=== PATIENT | female | born 2005 | race Two or more races ===

== ENCOUNTER → 2024-07-29 | Outpatient (CLI) | payer BC, SELFPAY ==
[2024-07-29 13:10] LABS: Basophils # (Auto) 0.1 Thou/mm3 (0.0-0.2); Basophils % (Auto) 1 % (0-2.5); Eosinophils # (Auto) 0.2 Thou/mm3 (0.0-0.5); Eosinophils % (Auto) 2 % (0-10); Hematocrit 40.8 % (36.0-46.0); Hemoglobin 13.7 g/dL (12.0-16.0); Immature Granulocytes % (Auto) 0 % (0-0); Immature Granulocytes Auto 0.02 Thou/mm3 (0.00-0.00); Lymphocytes # (Auto) 2.3 Thou/mm3 (1.0-4.8); Lymphocytes % (Auto) 30 % (10-50); Mean Corpuscular HGB Conc 33.6 g/dl (31.0-37.0); Mean Corpuscular Hemoglobin 30.6 pg (25.0-35.0); Mean Corpuscular Volume 91 fL (80-100); Monocytes # (Auto) 0.5 Thou/mm3 (0.0-0.8); Monocytes % (Auto) 7 % (0-12); Neutrophils # (Auto) 4.5 Thou/mm3 (1.8-7.7); Neutrophils % (Auto) 60 % (37-80); Nucleated Red Blood Cell % 0 /100 WBC (0); Platelet Count 266 Thou/mm3 (140-440); RDW Standard Deviation 44.4 fL (36.4-46.3); Red Blood Count 4.47 Miln/mm3 (4.00-5.20); White Blood Count 7.5 Thou/mm3 (4.5-11.0)
[2024-07-29 13:17] LABS: Glucose Estimated Average 103 mg/dL (80-131); Hemoglobin A1C 5.2 % Hgb (4.8-6.0)
[2024-07-29 13:20] LABS: Alanine Aminotransferase 22 U/L (10-49); Albumin, Serum 4.4 gm/dL (3.5-5.0); Albumin/Globulin Ratio 1.8 (1.2-2.2); Alkaline Phosphatase 51 U/L (46-116); Anion Gap 6 (7-16); Aspartate Amino Transferase 17 U/L (0-34); BUN/Creatinine Ratio 16 Ratio (12-20); Blood Urea Nitrogen 13 mg/dL (9-23); Calcium 9.4 mg/dL (8.3-10.6); Calcium (Corrected) 9.4 mg/dL (8.5-10.1); Carbon Dioxide 29.3 mMol/L (20.0-31.0); Cardiac Risk Estimate 2.9 RATIO (3.7-5.6); Chloride 105 mMol/L (98-107); Cholesterol 137 mg/dL (132-200); Creatinine (Component) 0.8 mg/dL (0.6-1.3); Globulin 2.5 gm/dL (2.3-3.5); Glucose 106 mg/dL (74-106); HDL Cholesterol 47 mg/dL (40-60); LDL Cholesterol,Calculated 81 mg/dL (0-130); Osmolality,Calculated 279 (275-295); Potassium 4.5 mMol/L (3.4-5.1); Sodium 140 mMol/L (136-145); Thyroid Stimulating Hormone 1.21 uIU/mL (0.55-4.78); Total Protein 6.9 gm/dL (5.7-8.2); Triglycerides 47 mg/dL (30-150); eGFR > 60 See Note
[2024-07-29 13:39] LABS: Syphilis Nonreactive (Nonreactive)
[2024-07-29 13:59] LABS: Hepatitis A Antibody IgM Non Reactive (Non React); Hepatitis B Core Antibody IgM Non Reactive (Non React); Hepatitis B Surface Antigen Non Reactive (Non React); Hepatitis C Antibody Non Reactive (Non React)
[2024-07-29 16:26] LABS: Chlamydia trachomatis PCR Negative (Not Detect); Neisseria Gonorrhoeae DNA PCR Negative (Not Detect); Trichomonas Negative (Negative)
[2024-08-01 07:00] LABS: HIV Ag/Ab, 4th Gen NON-REACTIVE
== END | disposition home or self-care (01) ==
LOC: COPL 11:20
PROVIDERS: PCP Family Medicine; Referring Provider Student in an Organized Health Care Education/Training Program; Visit Provider Student in an Organized Health Care Education/Training Program
DX: Z11.3 Encounter for screening for infections with a predominantly sexual mode of transmission (principal); R53.83 Other fatigue; Z82.49 Family history of ischemic heart disease and other diseases of the circulatory system; Z83.3 Family history of diabetes mellitus
CPT/HCPCS: 36415; 80053; 80061; 80074; 83036; 84443; 85025; 86780; 87389; 87491; 87591; 87661

== ENCOUNTER → 2024-07-30 | Outpatient (CLI) | payer BC, SELFPAY | END | disposition home or self-care (01) | LOC: SLDO 15:16 | PROVIDERS: PCP Family Medicine; Referring Provider Family Medicine; Visit Provider Family Medicine | DX: N39.0 Urinary tract infection, site not specified (principal) | CPT/HCPCS: 87086 ==

== ENCOUNTER 2024-11-06 02:49 | Emergency (ER) | payer BC, SELFPAY ==
[2024-11-06 02:51] VITALS: BMI 25.0
[2024-11-06 02:59] VITALS: BP 126/80; PULSE 93; RESP 17; TEMP 36.9; O2SAT 99
--- NOTE | 2024-11-06 03:07 | PC.NURSE ---
CALLED POISON CONTROL. SPOKE WITH JOSE NO NEED FOR Tx. NO KNOWN MEDICAL PROBLEMS KNOWN. OK FOR OT TO GO HOME.
--- NOTE | 2024-11-06 03:17 | EDNOTE_ITS ---
<Statement entered by Maggie Moore MD - 11/06/24 05:14> As co-signing physician, I was present and available for consult prn. I concur with the plan and care as documented by the midlevel provider. Nausea/Vomit./Diarrhea-RME/HPI General Chief complaint: General Adult/Misc Complain Stated complaint: TOOK A SUPPOSITORY MED ORALY Time Seen by Provider: 11/06/24 03:12 Arrival date/time: 11/06/24 02:49 19F with no significant PMH presents to ED with some ab discomfort and N/V after she accidentally took one boric acid suppository orally about 4 hours ago. Limitations: no limitations Related Data Allergies Allergy/AdvReac Type Severity Reaction Status Date / Time No Known Allergies Allergy Unknown Uncoded 11/06/24 02:56 Review of Systems Review of Systems Systems Reviewed: All systems reviewed, normal except as documented Constitutional Constitutional: Reports system reviewed and no additional complaints, except as documented, Denies fever(s) and Denies headache(s) ENT Ears, Nose, Mouth, and Throat: Denies disequilibrium and Denies headache(s) Cardiovascular Cardiovascular: Reports system reviewed and no additional complaints, except as documented, Denies chest pain and Denies dyspnea Respiratory Respiratory: Reports system reviewed and no additional complaints, except as documented, Denies cough and Denies dyspnea Gastrointestinal Gastrointestinal: Reports system reviewed and no additional complaints, except as documented, Reports as per HPI, Reports abdominal pain, Reports nausea and Reports vomiting Neurologic Neurologic: Reports system reviewed and no additional complaints, except as documented, Denies confusion, Denies disequilibrium and Denies headache(s) Psychiatric Psychiatric: Denies confusion Past Medical History Social History SMOKING STATUS: Never smoker ED Exam General Limitations: Present no limitations General appearance: Present alert and in no apparent distress Head Head exam: Present atraumatic Eye Eye exam: Present normal appearance, PERRL and EOMI ENT ENT exam: Present normal exam, normal oropharynx and mucous membranes moist Neck Neck exam: Present normal inspection, full ROM and trachea midline Chest Chest inspection: Present normal inspection and symmetric chest wall rise Respiratory Respiratory exam: Present normal lung sounds bilaterally Cardiovascular Cardiovascular exam: Present regular rate, normal rhythm and normal heart sounds Abdominal Exam Abdominal exam: Present soft and normal bowel sounds Extremities Exam Extremities exam: Present normal inspection and full ROM Back Exam Back exam: Present normal inspection and full ROM Neurological Exam Neurological exam: Present alert, oriented X3 and CN II-XII intact Psychiatric Psychiatric exam: Present normal affect and normal mood Skin Skin exam: Present warm, dry, intact and normal color Course Quality Measures none Orders Category Date Time Status Ondansetron Odt [Zofran Odt] Med 11/06/24 03:13 Discontinued 4 mg PO X1 ONE Vital Signs Vital signs: Vital Signs Temperature 98.4 F 11/06/24 02:59 Pulse Rate 93 11/06/24 02:59 Respiratory Rate 17 11/06/24 02:59 Blood Pressure 126/80 11/06/24 02:59 Pulse Oximetry (%) 99 11/06/24 02:59 Oxygen Delivery Method Room Air 11/06/24 02:59 O2 at 99% on RA and WNLs Nausea/Vomiting/Diarrhea MDM Narrative MDM Narrative:: 19F with no significant PMH presents to ED with some ab discomfort and N/V after she accidentally took one boric acid suppository orally about 4 hours ago. Physical exam reveals clear oropharynx and normal WOB. Speech normal. Gait normal. Patient is afebrile, calm, and alert. Poison control was contacted. They stated no tests to do. Patient is safe to go home. Patient data External records reviewed:: [facility] previous records Clinical information provided by:: patient Social determinants that could affect healthcare access:: none Patient has the following chronic illnesses:: none How is presenting disease/condition affected by chronic disease/condition?: no chronic disease Evaluation data The following diagnostics were reviewed and interpreted by me:: other (specify) (none) Lab and/or radiology exams considered but not ordered:: not ordered Interpretation Summary: n/a Medications / Prescriptions Medications / Prescriptions considered but not ordered:: ordered Medication administrations:: Medication Administration History Discontinued Medications Ondansetron HCl (Ondansetron Odt 4 Mg Tabrap) 4 mg PO X1 ONE; Protocol Stop: 11/06/24 03:14 above Consultations Consultation(s) initiated? (list below): No Diagnosis Nausea Differential Diagnosis: traveler's diarrhea, food poisoning, gastroenteritis, clostridium difficile infection, drug-induced nausea and vomiting, dehydration and other (toxic effect of inorganic substance, unintentional) Most likely diagnosis given after review of the tests above:: toxic effect of inorganic substance, unintentional Admission Indicated Admission indicated?: not indicated Admission Request Was there a request for admission?: No Disposition Plan Disposition Plan: Discharge Discharge Attestation Discharge Attestation: The patient and all family members were given an opportunity to ask questions and understood the discharge instructions. Discharge instructions specifically effects, indications for sooner follow up or return to the emergency department, and the expected course of current diagnosis. Patient condition: Stable Discharge Plan Plan Patient Disposition: HOME (Self Care) Discharge Disposition comment: Stable Problem List Clinical Impression: Toxic effect of inorganic substance, unintentional Patient/Caregiver Discharge Instructions Education Materials: ED Accidental Ingestion Nontoxic Adult Additional Instructions: Please follow-up with PCP within 24-48 hours and return immediately if symptoms worsen. Print Language: Mauritian Stand Alone Forms: Patient Portal Info Letter DARLENE/AILYN Supervising Physician MERRY Supervising Physician: Dr. Moore
== END 2024-11-06 03:30 | disposition home or self-care (01) ==
LOC: SERX 06:25
PROVIDERS: Emergency Provider Emergency Medicine; PCP Student in an Organized Health Care Education/Training Program
DX: T57.91XA Toxic effect of unspecified inorganic substance, accidental (unintentional), initial encounter (principal); R11.2 Nausea with vomiting, unspecified
CPT/HCPCS: 99282

== ENCOUNTER 2024-11-19 02:40 | Emergency (ER) | payer BC, SELFPAY ==
[2024-11-19 02:41] VITALS: BMI 25.0
[2024-11-19 03:11] VITALS: BP 120/70; RESP 18; TEMP 37.3; O2SAT 98
[2024-11-19] MEDS: BACITRACIN OINT 1 GM PACKET TOP (03:43)
[2024-11-19] MEDS: LIDOCAINE HCL 1% 20 ML VIAL INFL (03:44)
[2024-11-19] MEDS: DIPHTH,PERTUSS(ACELL),TET VAC 0.5 ML SYR- ADULT IMi (03:45)
--- NOTE | 2024-11-19 03:55 | PD.EDWOUND ---
ED Wound/Laceration-RME/HPI General Chief Complaint: Wound/Laceration Stated Complaint: LAC TO RIGHT WRIST Time Seen by Provider: 11/19/24 03:52 Arrival date/time: 11/19/24 02:40 RME / HPI RME / HPI narrative: This section includes all my notes and documentations, including HPI, PE, and ED course. Erasmo Chapman MD HPI: 19yo female here with a laceration to her right wrist. Patient was pushing through a glass window after she got locked out of the house and cut herself on the glass. No other injuries. Unknown last tetanus. No other complaints reported. ROS: All negative except as documented in HPI. Physical Exam: General: Alert and oriented. No acute distress when remaining still. Eyes: Conjunctivae and lids clear. ENT: No nasal congestion. Neck: Supple. Lungs: No respiratory distress. Skin: Warm and dry. In the distal right forearm (palm surface), there is a horizontal 2.5 cm full?skin thickness laceration. No NVT injury. Neuro: Alert and oriented X 3. At this point, diagnoses include Laceration. Treatment here included laceration repair (see procedure note), Lidocaine for local anesthesia, topical bacitracin, Tdap, Keflex. After laceration repair, no NVT injury noted. Provided good wound care instructions. Based on my best medical judgment, made decision no further evaluation or treatment indicated at this time. Patient understands and agrees to the discharge instructions customized and printed, see below. Discharge instructions from Dr. Chapman: -- Your laceration was repaired with 6 stitches. -- Keep the current dressing intact for 24 hours. -- After 24 hours, change the dressing once daily. -- First remove the dressing gently. If it does not come off easily, run water through it until it comes off easily. -- Then gently wash with soap and water. -- After completely drying, apply antibiotic ointment and new dressing. -- Elevate above the heart level today and tomorrow as much as possible. Placing the hand on the head is a good method. -- See your doctor or return here in 7 days for suture removal. Total of 6 stitches. -- Seek immediate medical care with fever, spreading redness from the wound, or with any concerns. Erasmo Chapman MD Related Data Allergies Allergy/AdvReac Type Severity Reaction Status Date / Time No Known Allergies Allergy Unknown Uncoded 11/19/24 02:48 Review of Systems Review of Systems Systems Reviewed: All systems reviewed, normal except as documented Past Medical History Social History SMOKING STATUS: Never smoker ED Exam Narrative Physical exam: As noted in HPI. Course Quality Measures none Orders Category Date Time Status Wound Care [Wound Care] NOW Care 11/19/24 03:22 Completed Bacitracin Oint pkt Med 11/19/24 03:21 Discontinued 1 gm TOP X1 ONE Lidocaine 1% 20 ml [Xylocaine 1% 20 ML] Med 11/19/24 03:21 Discontinued 20 ml INFL X1 ONE TET,DIP/PERT AC (Adult)-Tdap [Boostrix Adult (Tdap) Med 11/19/24 03:21 Discontinued Vacc] 0.5 ml IMI .ONCE ONE cephALEXin [Keflex] Med 11/19/24 03:21 Discontinued 1,000 mg PO X1 ONE Vital Signs Vital signs: Vital Signs Temperature 99.2 F 11/19/24 03:11 Respiratory Rate 18 11/19/24 03:11 Blood Pressure 120/70 11/19/24 03:11 Pulse Oximetry (%) 98 11/19/24 03:11 Oxygen Delivery Method Room Air 11/19/24 03:11 PROCEDURES: Laceration Laceration 1: Site: other (wrist) Side (If applicable): right Size (cm): 3.5 Description: linear Depth: simple, single layer Local Anesthetic: lidocaine 1% Amount of anesthesia used (mL): 6 Pre-repair: irrigated extensively Skin layer closed with: nylon Suture size (cm): 4-0 Number of sutures: 6 Technique: simple, interrupted Wound / Laceration MDM Narrative MDM Narrative:: 19yo female here with a laceration to her right wrist. Patient was pushing through a glass window after she got locked out of the house and cut herself on the glass. No other injuries. Unknown last tetanus. No other complaints reported. Patient data External records reviewed:: [facility] previous records (Per chart review, patient has no relevant previous ED visits.) Clinical information provided by:: patient Social determinants that could affect healthcare access:: none Patient has the following chronic illnesses:: none How is presenting disease/condition affected by chronic disease/condition?: no chronic disease Evaluation data The following diagnostics were reviewed and interpreted by me:: other (specify) (none) Lab and/or radiology exams considered but not ordered:: none Interpretation Summary: none Medications / Prescriptions Medications or Prescriptions considered but not ordered:: none Medication administrations:: Medication Administration History Discontinued Medications Bacitracin (Bacitracin Oint 1 Gm Packet) 1 gm TOP X1 ONE Stop: 11/19/24 03:22 Last Admin: 11/19/24 03:43 Dose: 1 gm Documented By: CVL Cephalexin HCl (Cephalexin 250 Mg Capsule) 1,000 mg PO X1 ONE Stop: 11/19/24 03:22 Last Admin: 11/19/24 03:44 Dose: 1,000 mg Documented By: CVL Diphtheria/Tetanus/Acell Pertussis (Diphth,Pertuss(Acell),Tet Vac 0.5 Ml Syr- Adult) 0.5 ml IMi .ONCE ONE Stop: 11/19/24 03:22 Last Admin: 11/19/24 03:45 Dose: 0.5 ml Documented By: CVL Lidocaine HCl (Lidocaine Hcl 1% 20 Ml Vial) 20 ml INFL X1 ONE Stop: 11/19/24 03:22 Last Admin: 11/19/24 03:44 Dose: 20 ml Documented By: CVL Treatment here included laceration repair (see procedure note), Lidocaine for local anesthesia, topical bacitracin, Tdap, Keflex. Consultations Consultation(s) initiated? (list below): No Diagnosis Wound Differential Diagnosis: laceration, abrasion and avulsion of skin Most likely diagnosis given after review of the tests above:: Laceration Admission Indicated Admission indicated?: not indicated Explain why admission is indicated or not indicated:: With successful laceration repair and no condition needing emergent intervention, there was no indication for admission. Admission Request Was there a request for admission?: No Disposition Plan Disposition Plan: Discharge Discharge Attestation Discharge Attestation: The patient and all family members were given an opportunity to ask questions and understood the discharge instructions. Discharge instructions specifically effects, indications for sooner follow up or return to the emergency department, and the expected course of current diagnosis. Patient condition: Stable Discharge Plan Plan Patient Disposition: HOME (Self Care) Problem List Clinical Impression: Laceration Patient/Caregiver Discharge Instructions Discharge Activity: activity as tolerated Education Materials: ED Laceration, Hand: All Closures Additional Instructions: Discharge instructions from Dr. Chapman:? -- Your laceration was repaired with 6 stitches. -- Keep the current dressing intact for 24 hours. -- After 24 hours, change the dressing once daily. -- First remove the dressing gently.? If it does not come off easily, run water through it until it comes off easily. -- Then gently wash with soap and water. -- After completely drying, apply antibiotic ointment and new dressing. -- Elevate above the heart level today and tomorrow as much as possible.? Placing the hand on the head is a good method. -- See your doctor or return here in 7 days for suture removal.? Total of 6 stitches. -- Seek immediate medical care with fever, spreading redness from the wound, or with any concerns. Print Language: Indonesian Stand Alone Forms: Pilar Award Info., Work/School Release, Patient Portal Info Letter
[2024-11-19 04:33] VITALS: RESP 16
== END 2024-11-19 04:34 | disposition home or self-care (01) ==
LOC: SERX 04:30
PROVIDERS: Emergency Provider Emergency Medicine; PCP Family Medicine
DX: S61.511A Laceration without foreign body of right wrist, initial encounter (principal); W25.XXXA Contact with sharp glass, initial encounter; Y92.008 Other place in unspecified non-institutional (private) residence as the place of occurrence of the external cause; Z23 Encounter for immunization
CPT/HCPCS: 12002; 90471; 90715; 99283; J3490; A9270

== ENCOUNTER 2024-11-27 00:35 | Emergency (ER) | payer BC, SELFPAY ==
[2024-11-27 01:10] VITALS: BP 105/63; PULSE 80; RESP 18; TEMP 37.2; O2SAT 97
--- NOTE | 2024-11-27 01:20 | EDNOTE_ITS ---
ED Wound/Laceration-RME/HPI General Chief Complaint: Wound Recheck / Suture Removal Stated Complaint: SUTURE REMOVAL Time Seen by Provider: 11/27/24 01:07 Arrival date/time: 11/27/24 00:35 19F with no significant PMH presents to ED for suture removal from lac repair done here 7 days ago on R forearm. Limitations: no limitations Related Data Allergies Allergy/AdvReac Type Severity Reaction Status Date / Time No Known Allergies Allergy Verified 11/27/24 00:36 Review of Systems Review of Systems Systems Reviewed: All systems reviewed, normal except as documented Constitutional Constitutional: Reports system reviewed and no additional complaints, except as documented, Denies fever(s) and Denies headache(s) ENT Ears, Nose, Mouth, and Throat: Denies disequilibrium and Denies headache(s) Cardiovascular Cardiovascular: Reports system reviewed and no additional complaints, except as documented, Denies chest pain and Denies dyspnea Respiratory Respiratory: Reports system reviewed and no additional complaints, except as documented, Denies cough and Denies dyspnea Gastrointestinal Gastrointestinal: Reports system reviewed and no additional complaints, except as documented, Denies abdominal pain, Denies nausea and Denies vomiting Neurologic Neurologic: Reports system reviewed and no additional complaints, except as documented, Denies confusion, Denies disequilibrium and Denies headache(s) Psychiatric Psychiatric: Denies confusion Past Medical History Social History SMOKING STATUS: Never smoker ED Exam General Limitations: Present no limitations General appearance: Present alert and in no apparent distress Head Head exam: Present atraumatic Eye Eye exam: Present normal appearance, PERRL and EOMI ENT ENT exam: Present normal exam, normal oropharynx and mucous membranes moist Neck Neck exam: Present normal inspection, full ROM and trachea midline Chest Chest inspection: Present normal inspection and symmetric chest wall rise Respiratory Respiratory exam: Present normal lung sounds bilaterally Cardiovascular Cardiovascular exam: Present regular rate, normal rhythm and normal heart sounds Abdominal Exam Abdominal exam: Present soft and normal bowel sounds Extremities Exam Extremities exam: Present full ROM Expanded Upper Extremity Exam Forearm/Wrist exam: Present full ROM and laceration (stitches around healing lac on R forearm) Back Exam Back exam: Present normal inspection and full ROM Neurological Exam Neurological exam: Present alert, oriented X3 and CN II-XII intact Psychiatric Psychiatric exam: Present normal affect and normal mood Skin Skin exam: Present warm, dry, intact and normal color Course Quality Measures none Vital Signs Vital signs: Vital Signs Temperature 98.9 F 11/27/24 01:10 Pulse Rate 80 11/27/24 01:10 Respiratory Rate 18 11/27/24 01:10 Blood Pressure 105/63 11/27/24 01:10 Pulse Oximetry (%) 97 11/27/24 01:10 Oxygen Delivery Method Room Air 11/27/24 01:10 O2 at 97% on RA and WNLs Wound / Laceration MDM Narrative MDM Narrative:: 19F with no significant PMH presents to ED for suture removal from lac repair done here 7 days ago on R forearm. Physical exam reveals stitches around healing R forearm. Still some wound dehiscence. Patient is afebrile, calm, and alert. Counseled to return in 2 days for suture removal. Patient data External records reviewed:: [facility] previous records Clinical information provided by:: patient Social determinants that could affect healthcare access:: none Patient has the following chronic illnesses:: none How is presenting disease/condition affected by chronic disease/condition?: no chronic disease Evaluation data The following diagnostics were reviewed and interpreted by me:: other (specify) (none) Lab and/or radiology exams considered but not ordered:: not ordered Interpretation Summary: n/a Medications / Prescriptions Medications or Prescriptions considered but not ordered:: not ordered Medication administrations:: n/a Consultations Consultation(s) initiated? (list below): No Diagnosis Wound Differential Diagnosis: laceration, abrasion and avulsion of skin Most likely diagnosis given after review of the tests above:: laceration Admission Indicated Admission indicated?: not indicated Admission Request Was there a request for admission?: No Disposition Plan Disposition Plan: Discharge Discharge Attestation Discharge Attestation: The patient and all family members were given an opportunity to ask questions and understood the discharge instructions. Discharge instructions specifically effects, indications for sooner follow up or return to the emergency department, and the expected course of current diagnosis. Patient condition: Stable Discharge Plan Plan Patient Disposition: HOME (Self Care) Discharge Disposition comment: Stable Problem List Clinical Impression: Laceration Patient/Caregiver Discharge Instructions Additional Instructions: Please follow-up with PCP within 24-48 hours and return immediately if symptoms worsen. Come back in 2 days for suture removal. Print Language: Emirati Stand Alone Forms: Patient Portal Info Letter DARLENE/AILYN Supervising Physician MERRY Supervising Physician: Dr. Medina
== END 2024-11-27 01:20 | disposition home or self-care (01) ==
LOC: SERX 01:24
PROVIDERS: Emergency Provider Emergency Medicine
DX: S51.811D Laceration without foreign body of right forearm, subsequent encounter (principal); X58.XXXD Exposure to other specified factors, subsequent encounter
CPT/HCPCS: 99282